=== PATIENT | female | born 1950 | race Caucasian/White ===

== ENCOUNTER → 2018-08-23 12:23 | Outpatient (CLI) | payer MEDICARE, OTHER, SELFPAY ==
--- NOTE | 2018-08-23 | DI.MRI.S_ITS ---
PROCEDURE: MR LUMBAR SPINE WO CON INDICATIONS: Radiculopathy, lumbar region TECHNIQUE: Noncontrast sagittal T1 spin echo and T2 fast echo, sagittal STIR, axial T1 and T2 fast spin echo through the lumbar spine. In cases with scoliosis, additional coronal T2 fast spin echo may be performed. COMPARISON: None. FINDINGS: Image quality: Diagnostic Alignment and Curvature: There is minimal retrolisthesis seen at L1-L2 and L2-L3. Minimal anterolisthesis is seen at L3-L4. Mild anterolisthesis is seen of L4-L5. There is minimal retrolisthesis at L5-S1. Moderate levoconvex scoliosis is seen. Bone Marrow: Marrow is of normal overall signal. Scattered foci are seen, which are hyperintense on T1-weighted and T2-weighted imaging, which are most consistent with benign vertebral body hemangiomas. No acute vertebral body compression fractures. Mild anterior wedge deformity is seen of L1, with 20% loss of height anteriorly. Spinal Cord: Conus medullaris terminates at the L1 level. Visualized cord demonstrates normal signal and size. Paraspinous Soft Tissues: No paravertebral masses. T12-L1: Mild loss of disc height is seen. Loss of disc signal is seen. Moderate disc bulge is seen, which is eccentric to the left. There is moderate left-sided and minimal right-sided neural foraminal narrowing seen. Mild central canal narrowing is seen. L1-L2: Moderate to severe loss of disc height and disc signal are seen. Reactive marrow endplate changes are seen, which demonstrate mixed T1 weighted and T2-weighted signal, and are attributed to a combination of edema and fatty metaplasia (Modic type I and Modic type II changes). Moderate to prominent disc bulge is seen, which is eccentric to the left. There is moderate to severe bilateral neural foraminal narrowing seen. There is a degree of compression seen upon the exiting nerve roots. Mild central canal narrowing is seen. L2-L3: Mild to moderate loss of disc height and disc signal can be seen. Moderate generalized disc bulge is seen. Moderate facet hypertrophy is seen, right worse than left. There is moderate left-sided and moderate to severe right-sided neural foraminal narrowing seen. There is a degree of compression seen upon the exiting right L2 nerve root. Moderate central canal narrowing is seen. L3-L4: The disc height is well-preserved. Loss of disc signal is seen at this level. Mild to moderate disc bulge is seen. Moderate to prominent facet hypertrophy is seen. Moderate bilateral neural foraminal narrowing is seen, right worse than left. Moderate central canal narrowing is seen. L4-L5: The disc height is well-preserved. Loss of disc signal is seen at this level. Mild to moderate disc bulge is seen. Moderate to prominent facet hypertrophy is seen. Moderate bilateral neural foraminal narrowing is seen, right worse than left. Mild central canal narrowing is seen. L5-S1: The disc height is well-preserved. Loss of disc signal is seen at this level. Moderate disc bulge is seen, which is eccentric to the left. Bridging anterior osteophytes are seen on the left. Mild to moderate facet hypertrophy is seen. There is moderate to severe bilateral neural foraminal narrowing seen, left worse than right. There is a degree of compression seen upon the exiting nerve roots. Minimal central canal narrowing is seen. IMPRESSION: Levoconvex scoliosis and multiple levels of degenerative change. The degenerative changes are overall most prominent at the L1-L2 level. Dictated by: Henrry Hameed M.D. on 08/23/2018 at 13:32 Approved by: Henrry Hameed M.D. on 08/23/2018 at 13:37
== END ==
PROVIDERS: PCP Family Medicine; Visit Provider Physical Medicine & Rehabilitation
DX: M47.26 Other spondylosis with radiculopathy, lumbar region (principal); M47.27 Other spondylosis with radiculopathy, lumbosacral region; M41.9 Scoliosis, unspecified
CPT/HCPCS: 72148

== ENCOUNTER → 2021-07-15 11:22 | Outpatient (CLI) | payer MEDICARE, OTHER, SELFPAY ==
--- NOTE | 2021-07-15 | DI.MRI.S_ITS ---
PROCEDURE: MR LUMBAR SPINE WO CON INDICATIONS: Spinal stenosis, lumbar region with neurogenic claudication TECHNIQUE: Noncontrast sagittal T1 spin echo and T2 fast echo, coronal T2, sagittal STIR, and T2 fast spin echo through the lumbar spine. COMPARISON: [facility], , MR LUMBAR SPINE WO CON, 08/23/2018, 12:37. [facility], CR, XR LUMBAR SPINE WITH OBLIQUES PLUS FLEXION EXTENSION, 06/28/2021, 15:52. FINDINGS: Image quality: Excellent. Alignment and Curvature: 5 lumbar type vertebral bodies are present by plain film. Moderate leftward curvature of the mid lumbar spine. Mild grade 1 retrolisthesis of L1 on L2 (measuring 6 mm), L2 on L3 (measuring 6 mm), and L5 on S1 (less than 5 mm). Mild, grade 1 anterolisthesis of L4 on L5 (measuring 7 mm), and L3 on L4 (4 mm). Bone Marrow: Marrow is of normal overall signal. No acute vertebral body compression fractures. Moderate reactive signal within the endplates adjacent to the L1-L2 intervertebral disc. Mild reactive signal within the remaining lumbar and lower thoracic intervertebral discs. Spinal Cord: Conus medullaris terminates at the upper L2 level. Visualized cord demonstrates normal signal and size. Paraspinous Soft Tissues: No paravertebral masses. T12-L1: Moderate disc height loss and desiccation. Mild diffuse disc bulge. Mild bilateral facet hypertrophy. Mild canal stenosis. Mild left greater than right foraminal stenosis. No significant change. L1-L2: Severe disc height loss and desiccation. Mild diffuse disc bulge. Mild facet and ligamentum flavum hypertrophy. Mild epidural lipomatosis. Mild canal stenosis. Moderate bilateral foraminal stenosis. No significant change. L2-L3: Mild disc height loss. Moderate disc desiccation. Mild diffuse disc bulge. Moderate facet and ligamentum flavum hypertrophy. There is increased, moderate canal stenosis. There is moderate to severe bilateral foraminal stenosis with mild L3 nerve root compression bilaterally. No significant change. L3-L4: Moderate disc desiccation. Mild disc height loss and diffuse disc bulge. Moderate bilateral facet hypertrophy. Mild canal stenosis. Moderate bilateral foraminal stenosis. No significant change. L4-L5: Moderate disc desiccation. Mild disc height loss. Mild diffuse disc bulge. Moderate bilateral facet hypertrophy. Mild canal stenosis. Moderate foraminal stenosis bilaterally. No significant change. L5-S1: Moderate disc height loss and desiccation. Mild diffuse disc bulge/osteophyte. Mild bilateral facet hypertrophy. Mild canal stenosis. Moderate to severe left and mild right foraminal stenosis. Mild left L5 nerve root compression. No significant change. IMPRESSION: 1. Multilevel degenerative disc and facet disease, as well as ligamentum flavum hypertrophy and epidural lipomatosis. 2. Multilevel canal stenoses, worst at L2-L3 where there is increased, moderate canal stenosis. 3. Multilevel foraminal stenoses, worst at L2-L3 and L5-S1, where there is associated intraforaminal nerve root compression. Recommend correlation with clinical symptoms to ascertain relevance of these findings. 4. Multilevel spondylolistheses. Dictated by: Katja Brasher M.D. on 07/19/2021 at 9:27 Approved by: Katja Brasher M.D. on 07/19/2021 at 9:34
== END ==
PROVIDERS: PCP Family Medicine; Referring Provider Physical Medicine & Rehabilitation; Visit Provider Physical Medicine & Rehabilitation
DX: M48.062 Spinal stenosis, lumbar region with neurogenic claudication (principal); M48.07 Spinal stenosis, lumbosacral region; M51.36 Other intervertebral disc degeneration, lumbar region; M51.37 Other intervertebral disc degeneration, lumbosacral region; M47.816 Spondylosis without myelopathy or radiculopathy, lumbar region; M47.817 Spondylosis without myelopathy or radiculopathy, lumbosacral region; M43.16 Spondylolisthesis, lumbar region
CPT/HCPCS: 72148

== ENCOUNTER → 2023-07-07 13:01 | Outpatient (CLI) | payer MEDICARE, OTHER, SELFPAY ==
--- NOTE | 2023-07-07 13:06 | DI.MRI.S_ITS ---
PROCEDURE: MR LUMBAR SPINE WO CON INDICATIONS: Spinal stenosis, lumbar region TECHNIQUE: Noncontrast sagittal T1 spin echo and T2 fast echo, sagittal STIR, and T2 fast spin echo through the lumbar spine. In cases with scoliosis, additional coronal T2 fast spin echo may be performed. COMPARISON: [facility], MR, MR LUMBAR SPINE WO CON, 07/15/2021, 11:39. [facility] [place], CR, XR LUMBAR SPINE WITH OBLIQUES PLUS FLEXION EXTENSION, 06/27/2023, 16:02. [facility], MR, MR LUMBAR SPINE WO CON, 08/23/2018, 12:37. FINDINGS: Image quality: This examination is limited by involuntary motion artifact. Alignment and Curvature: There is [id number] levoconvex lumbar scoliosis. Minimal retrolisthesis is seen at T12-L1. There is [id number] retrolisthesis seen at the L1-L2 level. There is mild retrolisthesis at L2-L3. Minimal anterolisthesis is seen at L3-L4. Grade 1 anterolisthesis is seen at L4-L5, yet without associated pars defects. Bone Marrow: Marrow is of normal overall signal. No acute vertebral body compression fractures. Spinal Cord: Conus medullaris terminates at the L1-L2 level. Visualized cord demonstrates normal signal and size. Paraspinous Soft Tissues: No paravertebral masses. T11-T12: Moderate loss of disc height is seen. Loss of disc signal is seen. Reactive marrow endplate changes are seen anteriorly, which are hyperintense on T1-weighted and T2-weighted imaging and most consistent with fatty metaplasia (Modic type II changes). No neural foraminal narrowing or central canal narrowing can be seen. T12-L1: Moderate loss of disc height is seen. Loss of disc signal is seen. Moderate disc bulge is seen, which is eccentric to the left. There is moderate left-sided and no right-sided neural foraminal narrowing. Mild to moderate central canal narrowing is seen. When comparison is made with the prior images, these findings are similar. L1-L2: Moderate loss of disc height and disc signal can be seen. Reactive marrow endplate changes are seen, which demonstrate mixed T1 weighted and T2-weighted signal, and are attributed to a combination of edema and fatty metaplasia (Modic type I and Modic type II changes). Moderate disc bulge is seen, which is eccentric to the left. Mild to moderate facet hypertrophy is seen. Associated hypertrophy of the ligamentum flavum can be seen. There is moderate to severe bilateral neural foraminal narrowing seen, with an associated a degree of compression seen upon the exiting nerve roots. Mild to moderate central canal narrowing is seen. When comparison is made with the prior images, these findings are similar. L2-L3: Mild loss of disc height is seen. Loss of disc signal is seen. Moderate disc bulge is seen, which is eccentric to the right. There is a superimposed central disc protrusion. There is moderate right-sided and [id number] left-sided facet hypertrophy seen. Associated hypertrophy of the ligamentum flavum can be seen. There is moderate to severe right-sided and at least moderate left-sided neural foraminal narrowing. There is a degree of compression seen upon the exiting nerve roots. Moderate central canal narrowing is seen. When comparison is made with the prior images, these findings are similar. L3-L4: The disc height is well-preserved. Loss of disc signal is seen at this level. Mild to moderate disc bulge is seen, which is eccentric to the right. There is a superimposed central disc protrusion. At least moderate facet hypertrophy can be seen. There is at least moderate bilateral neural foraminal narrowing seen. There is a degree of compression seen upon the exiting nerve roots. Moderate central canal narrowing is seen. When comparison is made with the prior images, these findings are similar. L4-L5: The disc height is well-preserved. Loss of disc signal is seen at this level. Moderate generalized disc bulge is seen. There is a superimposed central disc protrusion. Moderate to prominent facet hypertrophy can be seen. There is at least moderate right-sided neural foraminal narrowing, with a degree of compression upon the exiting right L4 nerve root. There is mild left-sided neural foraminal narrowing. Moderate central canal narrowing is seen. When comparison is made with the prior images, these findings are similar. L5-S1: The disc height is well-preserved. Loss of disc signal is seen at this level. Moderate disc bulge is seen, which is eccentric to the left. Mild facet joint hypertrophy is seen. There is moderate right-sided and moderate to severe left-sided neural foraminal narrowing. There is a degree of compression seen upon the exiting left L5 nerve root. No significant central canal narrowing is seen. No significant change from the prior. IMPRESSION: Multiple levels of significant lumbar spine degenerative change can be seen, which are similar to the 202 images. Dictated by: Henrry Hameed M.D. on 07/07/2023 at 13:08 Approved by: Henrry Hameed M.D. on 07/07/2023 at 13:15
== END ==
LOC: MRI 13:04
PROVIDERS: PCP Family Medicine; Referring Provider Orthopaedic Surgery Orthopaedic Surgery of the Spine; Visit Provider Physical Medicine & Rehabilitation
DX: M48.062 Spinal stenosis, lumbar region with neurogenic claudication (principal); M47.816 Spondylosis without myelopathy or radiculopathy, lumbar region; M47.817 Spondylosis without myelopathy or radiculopathy, lumbosacral region
CPT/HCPCS: 72148

== ENCOUNTER → 2023-07-26 13:07 | Outpatient (CLI) | payer MEDICARE, OTHER, SELFPAY ==
--- NOTE | 2023-07-26 13:09 | DI.CT.S_ITS ---
PROCEDURE: CT LUMBAR SPINE WO CON INDICATIONS: Spinal stenosis, lumbar region TECHNIQUE: Noncontrast 0.8 mm thick sections acquired from the T12 level to the sacrum. Sagittal and coronal reformats were constructed. For radiation dose reduction, the following was used: automated exposure control. COMPARISON: [facility] [place], CR, XR LUMBAR SPINE WITH OBLIQUES PLUS FLEXION EXTENSION, 06/27/2023, 16:02. [facility], MR, MR LUMBAR SPINE WO CON, 07/07/2023, 13:10. FINDINGS: Image quality: This study is limited by body habitus. Bones: There is [id number]-hg-[id number] levoconvex lumbar scoliosis. There is mild retrolisthesis at L1-L2, with minimal retrolisthesis at L2-L3. Minimal anterolisthesis is seen at L3-L4. Mild grade 1 anterolisthesis is seen at the L4-L5 level, without associated pars defects. There is a chronic appearing anterior wedge deformity at L1, with 20-30% loss of height anteriorly. No acute features are seen. No acute vertebral body compression fractures. No suspicious lytic or blastic bony lesions. T12-L1: Moderate loss of disc height is seen. Bridging endplate osteophytes can be seen on the left. Mild generalized disc bulge is seen. There is moderate left-sided and no right-sided neural foraminal narrowing. No central canal narrowing is seen. L1-L2: Severe loss of disc height is seen. Bridging endplate osteophytes are seen on the right and on the left. Endplate irregularity and sclerosis can be seen. Posteriorly projected endplate osteophytes are seen. Moderate facet joint hypertrophy is seen. There is moderate to severe left-sided and severe right-sided neural foraminal narrowing. Mild central canal narrowing is seen. L2-L3: At least moderate loss of disc height is seen on the right side. Bridging endplate osteophytes are seen on the right. Vacuum disc phenomenon is seen at this level. Moderate facet joint hypertrophy is seen. There is at least moderate left-sided and severe right-sided neural foraminal narrowing. Mild central canal narrowing is seen. L3-L4: The disc height is well preserved. Moderate disc bulge is seen, which is eccentric to the right. There is a superimposed central disc protrusion. Prominent facet hypertrophy can be seen, right worse than left. Moderate bilateral neural foraminal narrowing is seen. Moderate central canal narrowing is seen. L4-L5: Mild loss of disc height is seen. Moderate generalized disc bulge is seen. Prominent facet hypertrophy is seen. There is at least moderate left-sided and moderate right-sided neural foraminal narrowing. Moderate central canal narrowing is seen. L5-S1: Moderate to severe loss of disc height is seen on the left side. Bridging endplate osteophytes are seen on the left. Vacuum disc phenomenon is seen at this level. Moderate facet joint hypertrophy is seen. There is at least moderate right-sided and moderate to severe left-sided neural foraminal narrowing. Mild central canal narrowing is seen. Soft tissues: A lap band can be seen. No retroperitoneal masses or hematomas. Visualized aorta is normal in caliber. Calcified uterine fibroids can be seen. IMPRESSION: Levoconvex scoliosis and multiple levels of lumbar spine degenerative change can be seen. Additional findings: Lap band calcified uterine fibroids Dictated by: Henrry Hameed M.D. on 07/26/2023 at 19:24 Approved by: Henrry Hameed M.D. on 07/26/2023 at 19:29
== END ==
PROVIDERS: PCP Nurse Practitioner Family; Referring Provider Orthopaedic Surgery Orthopaedic Surgery of the Spine; Visit Provider Orthopaedic Surgery Orthopaedic Surgery of the Spine
DX: Z01.818 Encounter for other preprocedural examination (principal); M48.062 Spinal stenosis, lumbar region with neurogenic claudication; M47.816 Spondylosis without myelopathy or radiculopathy, lumbar region; M47.817 Spondylosis without myelopathy or radiculopathy, lumbosacral region; M41.9 Scoliosis, unspecified; Z98.84 Bariatric surgery status; D25.9 Leiomyoma of uterus, unspecified
CPT/HCPCS: 72131; 93005

== ENCOUNTER 2023-09-06 05:58 | Inpatient (IN) | payer MEDICARE, OTHER, SELFPAY ==
[2023-08-30 12:48] VITALS: BMI 37.8
[2023-09-06] VITALS (15 sets, daily range): BP systolic 91–130; BP diastolic 49–90; PULSE 63–81; RESP 13–18; TEMP 35.7–37; O2SAT 92–98; BMI 37.8
--- NOTE | 2023-09-06 | DI.RAD.S_ITS ---
PROCEDURE: XR LUMBAR SPINE 2-3V INDICATIONS: TLIF L3-4,L4-5 TECHNIQUE: 2 views of the lumbar spine were acquired. COMPARISON: [facility], CT, CT LUMBAR SPINE WO CON, 07/26/2023, 13:33. [facility], MR, MR LUMBAR SPINE WO CON, 07/07/2023, 13:10. FINDINGS: Intraoperative images demonstrating L3 through L5 fusion with intervertebral spacers. Hardware is intact with good anatomic alignment. IMPRESSION: Intervertebral fusion from L3 through L5. Dictated by: Giuliana Castillo M.D. on 09/06/2023 at 13:48 Approved by: Giuliana Castillo M.D. on 09/06/2023 at 13:50
--- NOTE | 2023-09-06 07:44 | PM.PREOP ---
Pre-operative Note Interval Note History & Physical reviewed/Exam performed by Physician: Yes Changes to H&P: No
--- NOTE | 2023-09-06 08:32 | SUR.OPER ---
Prone on spine table, head in foam head support, padded chest and pelvic supports, gel pad at knees, lower legs supported by pillows; nipples, genitalia and toes free of pressure, arms secured on foam padded arm boards at <90 degrees abduction. Tape over blanket at thigh secured to table.
--- NOTE | 2023-09-06 11:56 | PM.OP.1 ---
Operative Date/Time/Diagnoses Date of procedure: 09/06/23 Time of procedure: 07:40 Pre-op diagnosis: 1. L3-4, L4-5 spondylolisthesis 2. L3-4, L4-5 spinal stenosis with neurogenic claudication Post-op diagnosis: same Procedure & Clinicians Procedure: 1. L3-4, L4-5 Postero-lateral and posterior interbody fusion 2. L3-4, L4-5 interbody cage placement. 3. L3-4, L4-5 decompressive laminectomy with bilateral facetecomies 4. L3-4, L4-5 Posterior segmental instrumentation 5. [place] of bone marrow from iliac crest 6. Utilization of microsurgical technique and operating microscope 7 Utilization of robotic assisted navitation Same procedure as scheduled: Yes Indications: Patient has been having chronic back pain and worsening lumbar radiculopathy and symptoms of neurogenic claudication. Patient has MRI showing significant lumbar instability at L3-4 L4-5 with spinal stenosis correlating with symptoms of neurogenic claudication. Patient failed multiple conservative management with worsening pain weakness and numbness in her lower extremity. Patient has been having difficulty performing activity of daily living. After discussing risks benefits of treatment options, patient elected proceed with surgery. Surgeon: Dago Hill Glass Forming Crew Member: Nandini Briones Click Yes if Unassisted: No Anesthesia Type: General Operative Notes Closure Type: primary Specimen(s): none sent Prosthetic devices, grafts, tissues, transplants, or devices: Globus CREO MIS screws, Rise cages Applied: catheter Estimated Blood Loss (mL): 150 Blood products transfused: none Procedure in detail: Patient was seen in the preoperative area. Risks and benefits of the surgery was discussed with the patient. Informed consent was obtained from the patient and placed in the chart. Surgical site was marked. Patient was taken to the operative room. General anesthesia was administered. Prophylactic antibiotic was given to the patient less than 30 min before the incision was made. Patient was placed into a prone position on the Ryley table. Patient's back was then prepped and draped in the sterile fashion. Time-out was performed at this time. After patient was prepped and draped, patient's PSIS was palpated and marked bilaterally. Small 1 cm incision was made over the PSIS for placement of the reference probes. Two trocar was placed into the PSIS 1 on each side. The reference probe was attached to the trocar of the reference apparatus. At this time the C-arm imaging was used to confirm AP and lateral of L3, L4-L5 vertebrae and merged the C-arm imaging using the [employer] robotic navigation system with the CT of the lumbar spine. After successful merging was completed and confirmed, skin marker was used to jason out the skin incision using the [employer] robotic arm. Bilateral incision was made at this time. Pre templated trajectory was used and guided using the [employer] robotic navigation system for bilateral L3 L4, L5 pedicle screw placement. This was done by using the robotic arm to guide the high-speed bur to make a cortical entry point. Next a drill was placed also using the robotic arm and guided using the navigation system drilling partially through bilateral L3, L4, L5 pedicles. Next L3, L4, L5 pedicle screws it was pre templated and measured was placed onto the power light truck driver and inserted into the pedicles bilaterally. After all 6 screws were placed C-arm imaging was taken of both AP and lateral to confirm the placement. Excellent placement of the screws were confirmed and a matched precisely with the pre planned screw placement using the navigation system. MARs retractor was inserted using [employer] guidence. Globus MARS retractors was placed inside the incision and docked onto the L3, L4 lamina. Using microsurgical technique and operating microscope, a L3, L4 laminectomy and L3-4, L4-5 facetectomy was performed using a Kerrison rongeur. The laminectomy and facetectomy was performed in order to decompress patient's cauda equina as well as the nerve roots exiting at the L3-4, L4-5 level. Patient was found have severe lateral recess and neural foramen stenosis which was fully decompressed after the laminectomy facetectomy. More than 75% of the facets were removed during the process of decompression rendering L3-4, L4-5 level grossly unstable and required a fusion procedure at the same time. The disc space at L3-4, L4-5 was identified, and a total diskectomy was performed at L3-4, L4-5 level. The endplates were decorticated using a rasp and shaver. The total diskectomy and decortication was performed at L3-4, L4-5 level in order to to accomplish a L3-4, L4-5 fusion. The local bone from the laminectomy and facetectomy was saved for local bone grafting. After the total diskectomy and decortication was completed, Viacel bone graft material was combined with local bone that was harvested earlier. At this time, a separate skin is incision was made over the iliac crest. A Jamshidi needle was inserted into the iliac crest through a separate skin incision. 5 cc of bone marrow aspiration was obtained through the separate skin incision using a Jamshidi needle from the iliac crest. The bone marrow aspiration was combined with local bone and the Viacel bone grafting material. The bone grafting material was placed into the L3-4, L4-5 interbody space along with expandable cages. One cage each was inserted into the L3-4 L4-5 interbody space along with bone graft material. The cage was expanded to its maximum height using the torque limiting screwdriver. The disc preparation as well as the cage insertion were also performed under navigation guidance. After the cage was placed, AP and lateral C-arm imaging was taken to confirm placement of the cage and excellent position was confirmed. Globus MARS retractor was inserted and docked onto the L3-4, L4-5 posterolateral gutter on the right side. Using the power drill, posterior-lateral decortication was performed at L3-4, L4-5 level until bleeding cortical bone was identified. The remaining bone grafting material was placed into the L3-4, L4-5 posterior lateral gutter he order to accomplish posterolateral fusion at the L3-4, L4-5 level. At this time the tulips were attached to the L3, L4-L5 pedicle screw shanks. After measuring the length of the rods, they were inserted into the tulips of the pedicle screws and locked in place using locking caps and torque limiting screwdriver bilaterally. Total 6 caps and 2 titanium rods was used in order to complete the posterior instrumentation construct. After all the hardware was placed, and confirmed with AP and lateral C-arm imaging, the wound was then irrigated with sterile normal saline and packed with Ray-Stella gauze for 3 min to accomplish hemostasis. After the gauze was removed the deep fascia was closed with #1 Vicryl suture. The subcutaneous layer was closed with 2-0 Vicryl. The skin was closed with skin eve. Patient tolerated the procedure well. There were no complications. Neuro monitoring system was used to monitor patient's neurologic status throughout entire procedure. There was no disturbance of the neural monitoring signals throughout the case. The Operation could not have been safely performed without compromising the technical result or length of the procedure, without the assistance of a skilled assistant professor of spanish. The assistant professor of spanish was medically necessary for proper positioning, retraction and manipulation of instruments, proper exposure, surgical preparation, and manipulation of tissue. Complications: none Post-operative Condition: stable Disposition: PACU Plan for aftercare: Admit to inpatient hospital
[2023-09-06] MEDS: ACETAMINOPHEN IV 1,000 MG/100 ML VIAL 400 MG IV (12:13)
[2023-09-06] MEDS: hydrOXYzine 50 MG/ML INJ 25 MG IM (12:16)
[2023-09-06] MEDS: METOCLOPRAMIDE 10 MG/2 ML INJ IV (12:17)
[2023-09-06] MEDS: ONDANSETRON 4 MG/2 ML INJ IV (12:18)
[2023-09-06] MEDS: methocarbamoL 500 MG TABLET 750 MG PO (12:22)
[2023-09-06] MEDS: ACETAMINOPHEN 325 MG TABLET 650 MG PO (13:46)
[2023-09-06] MEDS: LACTATED RINGERS 1,000 ML 125 ML IV ×3 (13:47→22:30)
[2023-09-06] MEDS: OXYCODONE IR 5 MG TABLET PO ×3 (13:47→21:40)
--- NOTE | 2023-09-06 17:05 | PT-IP ANOTE ---
PT eval received. and EMR reviewed. checked on pt and pt is asleep. niece in room and informed about PT. niece does not want PT to wake pt up and agreed to just check on pt tomorrow.
[2023-09-06] MEDS: CEFAZOLIN 2 GM/100 ML PREMIX 100 ML IV (17:50)
[2023-09-06] MEDS: LACTATED RINGERS 500 ML 1000 ML IV (20:33)
[2023-09-06] MEDS: PREGABALIN 75 MG CAPSULE PO (21:18)
[2023-09-06] MEDS: SENNOSIDES 8.6 MG TABLET 17.2 MG PO (21:18)
[2023-09-06] MEDS: DOCUSATE 100 MG CAPSULE PO (21:18)
[2023-09-07] MEDS: CEFAZOLIN 2 GM/100 ML PREMIX 100 ML IV (00:25)
[2023-09-07 00:30] VITALS: BP 139/79; PULSE 72; RESP 17; TEMP 37; O2SAT 93
[2023-09-07] MEDS: ACETAMINOPHEN 325 MG TABLET 650 MG PO ×2 (01:02→09:51)
[2023-09-07] MEDS: OXYCODONE IR 5 MG TABLET PO ×3 (01:03→14:52)
--- NOTE | 2023-09-07 01:58 | PC.NURSE ---
Patient is alert and oriented. Breath sounds CTA but noted to intermittently desat to high 80's when on RA so is currently on oxygen at 1L/min with sat of 95%. HRR. Did have low BP at end of previous shift and was given a fluid bolus and last BP was now 139/79. Denied nausea. BT present and is now passing flatus. Indwelling catheter is patent and urine is clear, light beth. Is able to reposition herself in bed and log rolls appropriately. Was gotten up and was able to ambulate in the simon with walker and 1 assist; walked from room to 211 and back to room and then sat up in chair for and hour before getting back into bed. Dressing to back with shadow drainage noted on left side of dressing. Has chronic bilateral foot neuropathy and numbness in right leg; unchanged from pre-op. CMS is intact bilaterally. Is receiving oxycodone + tylenol for pain and well controlled; declines offer of ice pack. Is wearing bilateral calf SCD's. Fall risk score is moderate and bed alarm is activated.
[2023-09-07 06:09] LABS: Hematocrit 31.3 % (36-46)
[2023-09-07 06:37] VITALS: BP 132/74; PULSE 80; RESP 17; TEMP 37.1; O2SAT 95
[2023-09-07 08:00] VITALS: BP 114/68; PULSE 74; RESP 16; TEMP 36.8; O2SAT 98
[2023-09-07] MEDS: LACTATED RINGERS 1,000 ML 125 ML IV (08:17)
[2023-09-07] MEDS: DULOXETINE 30 MG CAPSULE 60 MG PO (09:51)
[2023-09-07] MEDS: DOCUSATE 100 MG CAPSULE PO (09:51)
--- NOTE | 2023-09-07 10:00 | OT.IP.EVAL ---
Current Diagnoses Spondylolisthesis, lumbar region (09/06/23) Spinal stenosis, lumbar region without neurogenic claudication (09/06/23) Surgery Performed Operation Date: 09/06/23 07:45 Actual Procedures p L3-4, L4-5 TLIF with posterior instrumentation - robot - Dago Hill MD Past Medical History (Last Updated 08/30/23 @ 13:26 by Lainey Tony, RN) High cholesterol History of COVID-19 (06/2022) Lumbar foraminal stenosis PHILIP (obstructive sleep apnea) Pre-diabetes Seasonal allergies Surgical History (Last Updated 08/30/23 @ 13:18 by Lainey Tony RN) Hx of abdominoplasty (2015) Hx of bilateral cataract extraction (2021) Hx of dilation and curettage () Hx of laparoscopic gastric banding (2012) Hx of LASIK (2001) S/P left unicompartmental knee replacement (2008) Occupational Therapy Inpatient Evaluation/Re-Eval M1 PT/OT-IP Prior Functional Status Start: 09/07/23 08:06 Freq: NEEDED Status: Active Protocol: Document 09/07/23 08:15 JG (Rec: 09/07/23 09:44 JG [id number]) Medical Review Social History Household Members friend(s),other Living Arrangements House Number of Floors (Floors) One Floor Number of Stairs To Enter/Railing? Pt has ramp to enter and exit home Home Environment High Toilet,Walk in Shower, Built-In Shower Seat Home Equipment Four Wheel Walker,Raised Toilet Seat Without Armrests, Hand Held Shower Employment Status Unknown M1 PT/OT-IP Prior Functional Status Start: 09/07/23 10:21 Freq: NEEDED Status: Active Protocol: Document 09/07/23 10:21 [facility] (Rec: 09/07/23 10:47 [facility] [id number]) Medical Review Prior Functional Status Communication Independent Mobility and Gait Did not use a device but her walking was limited in distance due to pain. Activities of Daily Living and IADL's Pt had pain during ADL and IADL needs. Social History Household Members family,other Living Arrangements House Number of Floors (Floors) One Floor Number of Stairs To Enter/Railing? Pt has ramp to enter and exit home Home Environment High Toilet,Walk in Shower Home Equipment Four Wheel Walker,Hand Held Shower,Shoulder Puncher,Grab Bars In Shower Employment Status Unknown Additional Social History Comment Pt has an adjustable bed. M2 OT-IP Current Condition Start: 09/07/23 10:21 Freq: Status: Active Protocol: Document 09/07/23 10:21 [facility] (Rec: 09/07/23 10:47 [facility] [id number]) Occupational Therapy Current Condition Current Condition Evaluation Date 09/07/23 Treatment Diagnosis S/P L 3-4, L4-5 TLIF Diagnosis Onset Date 09/06/23 Post Operative Precautions Lumbar Precautions Log Roll,No Twisting,Limit Bending,Lifting Restriction of 10 lbs,Gait Belt above Incisional Area M3 OT- IP Subjective and Pain Start: 09/07/23 10:21 Freq: Status: Active Protocol: Document 09/07/23 10:21 [facility] (Rec: 09/07/23 10:47 [facility] [id number]) OT- Subjective Occupational Therapy Visit Type Type Initial Evaluation Visit Start Time 09:12 Visit Stop Time 10:00 Occupational Therapy Visit Comments Patient Comments Pt agreed to get up to work with OT and pt's niece in the room for caregiver training. Patient/Caregiver Goals To go home. OT Pain Assessment Pain When Pain Assessed During Mobility Pain Present Pain Present Pain Reported M4 OT- IP ADL's Start: 09/07/23 10:21 Freq: Status: Active Protocol: Document 09/07/23 10:21 [facility] (Rec: 09/07/23 10:47 [facility] [id number]) OT [id number] Comments OT Self-Feeding Comments Not at mealtime, no concerns. OT ADL-Grooming General Evaluation Grooming Ability Standby Assistance Comments OT Grooming Comments set-up assist. OT ADL-Oral Care General Eval Oral Care Ability Standby Assistance Areas of Assistance Retrieving/Set-Up of Items Comments Oral Care Comments Set-up assist and vc to hinge at her hips or spit into a cup to best follow her back precautions. OT ADL-Dressing General Eval Lower Body Dressing Ability Minimal Assistance Areas Needing Assistance Socks Comments OT Dressing Comments Able to speak of sock aid for pt , but pt states is barefooted at home or just has slip in shoes to wear. OT ADL-Toileting Comments OT Toileting Comments Pt states to wears pull up or pads. Suggested pt get a BSC as has to walk to the bathroom several times at night. Able to try wiping and able to follow her back precautions better by standing. Suggested use of wet wipes as well and possibly getting a toilet paper aid to help with her independence. OT ADL-Bathing Comments OT Bathing Comments Pt states just thinking of sponging off at this time. Suggested to cover the dressing to prevent from getting wet when showering. M5 OT- IP IADL's Start: 09/07/23 10:21 Freq: Status: Active Protocol: Document 09/07/23 10:21 [facility] (Rec: 09/07/23 10:47 [facility] [id number]) OT-Instrumental Activities of Daily Living Deficits IADL Deficits Identified Deficits Home Safety Awareness Awareness of Need for Assistance at Home Good Awareness Ability to Problem Solve Emergency Able to Problem Solve Situations Home Safety Comments Pt's niece to be there to assist with her needs. Meal Preparation Meal Preparation Caregiver Provides Assist Electrical Prospector Electrical Prospector Caregiver Provides Assist Driving Driving Comments Pt is aware not to drive at this time. M6 OT- IP Functional Cognition Start: 09/07/23 10:21 Freq: Status: Active Protocol: Document 09/07/23 10:21 [facility] (Rec: 09/07/23 10:47 [facility] [id number]) Cognitive Factors Limiting Selfcare Function Cognitive Ability Level of Alertness Alert Patient Orientation Name,Age,Birthday,Month,Date, Year,Day of Week,Place, Situation Attention Span Ability Capable of Focused Attention, Capable of Sustained Attention Ability to Follow Commands Able to Follow One Step Commands Safety Awareness Decreased Ability to Apply Precautions Cognitive Comments Cognitive Assessment Comments Pt is a bit impulsive at times and needing reminders to incorporate her back precautions during ADL and mobility needs. OT- Vision and Hearing OT- Hearing Assessment OT- Hearing Assessment Hearing Impaired OT- Vision Assessment Visual Acuity Glasses For Reading Visual Attentiveness WFL Occular Pursuits WFL M7 OT- IP Mobility and Balance Start: 09/07/23 10:21 Freq: Status: Active Protocol: Document 09/07/23 10:21 [facility] (Rec: 09/07/23 10:47 [facility] [id number]) OT- Bed Mobility Assessment Rolling Type of Rolling Log Rolling Level of Assistance Standby Assistance Supine to Sit Supine to Sit Assist Standby Assistance,Contact Guard Assistance Sit to Supine Sit to Supine Assist Standby Assistance,Contact Guard Assistance OT-Transfer Assessment Sit to and From Stand Sit to and from Stand Standby Assistance Transfers Transfer Ability Standby Assistance Technique Transfer Destination Bed,Chair,Toilet Transfer Technique Stand Step Pivot Devices Transfer Assistive Devices Gait Belt,Front Wheeled Walker Comments Mobility Comments Having to go over log rolling with the pt to be sure not to reach back with her left arm when getting into or out of the bed. Pt's niece able to safely assist for for all mobility needs at this time. Pt states feel confident in using the 4ww and states to pickk up a fww if needed. Suggested pt ga a toilet safety frame/bsc / grab bare for the toilet. Pt states will be able to us the valenzuela by the toilet to get up. Able to practice , pt able to push on on her knees to stand and also by use of the wall on the right, and left hand on her knee. Educated if pushing on the fww to be sure that her niece assist to stabilize the fww as needed. OT- Balance Assessment Sitting Balance and Reactions Static Sitting Balance Ability Good Dynamic Sitting Balance Ability Good Standing Balance and Reactions Static Standing Balance Ability Good Dynamic Standing Balance Ability Fair Comments Other Balance Tests/Deviations/Treatment Pt's states prior her feet : turning lathe tender while walking. Cued pt to be sure to have her feet in the fww and be careful not to bump into her feet. M8 OT- IP Objective Assessments Start: 09/07/23 10:21 Freq: Status: Active Protocol: Document 09/07/23 10:21 [facility] (Rec: 09/07/23 10:47 [facility] [id number]) OT Gross Range of Motion Upper Extremity Range of Motion Assessment Within Functional Limits OT Strength Upper Extremity Strength Assessment Within Functional Limits M9 OT- IP Assessment and Plan Start: 09/07/23 10:21 Freq: Status: Active Protocol: Document 09/07/23 10:21 [facility] (Rec: 09/07/23 10:47 [facility] [id number]) OT Summary Assessment and Plan Potential Rehabilitation Potential Good Analytic Complexity at Evaluation Low Summary OT Impairments Pain,Balance,Functional Mobility,Dressing,Toileting, Bathing,Toilet Transfers, Shower Transfers Progress Towards Goals Progressing Toward Goals Assessment Summary Pt low complexity and main barriers are pain and a little impulsive at times. Pt has a supportive niece who demonstrates good understanding and safety to be able to assist the pt. Pt to go home with assist when medically stable. Goals Self-Feeding Goal Independent Grooming Goal Independent Dressing Goal Independent Toileting Goal Independent Bathing Goal Standby Assistance Toilet Transfer Goal Independent Shower Transfer Goal Independent Days to Meet Goals 10 Frequency of Treatment Frequency Of Treatment Once a Day Treatment Plan OT Treatment Plan ADL Training,Functional Mobility,Patient/Family Education,Discharge Planning Discharge Recommendations OT Discharge Recommendations Home with Assistance Transportation Needs at Discharge Private Vehicle
--- NOTE | 2023-09-07 10:56 | PT.IIE ---
Addendum entered and electronically signed by Karolyn Kramer PT 09/07/23 10:59: PT provides direct supervision during SPT assessment Original Note: Current Diagnoses Spondylolisthesis, lumbar region (09/06/23) Spinal stenosis, lumbar region without neurogenic claudication (09/06/23) Surgery Performed Operation Date: 09/06/23 07:45 Actual Procedures p L3-4, L4-5 TLIF with posterior instrumentation - robot - Dago Hill MD Surgical History (Last Updated 08/30/23 @ 13:18 by Lainey Tony RN) Hx of abdominoplasty (2015) Hx of bilateral cataract extraction (2021) Hx of dilation and curettage (~2005) Hx of laparoscopic gastric banding (2012) Hx of LASIK (2001) S/P left unicompartmental knee replacement (2008) Medical History (Last Updated 08/30/23 @ 13:26 by Lainey Tony RN) High cholesterol History of COVID-19 (06/2022) Lumbar foraminal stenosis PHILIP (obstructive sleep apnea) Pre-diabetes Seasonal allergies Physical Therapy Inpatient Evaluation/Re-Eval M1 PT/OT-IP Prior Functional Status Start: 09/07/23 08:06 Freq: NEEDED Status: Active Protocol: Document 09/07/23 08:15 JG (Rec: 09/07/23 09:44 JG [id number]) Medical Review Social History Household Members friend(s),other Living Arrangements House Number of Floors (Floors) One Floor Number of Stairs To Enter/Railing? Pt has ramp to enter and exit home Home Environment High Toilet,Walk in Shower, Built-In Shower Seat Home Equipment Four Wheel Walker,Raised Toilet Seat Without Armrests, Hand Held Shower Employment Status Unknown M1 PT/OT-IP Prior Functional Status Start: 09/07/23 10:21 Freq: NEEDED Status: Active Protocol: Document 09/07/23 10:21 CCC (Rec: 09/07/23 10:47 [facility] [id number]) Medical Review Prior Functional Status Communication Independent Mobility and Gait Did not use a device but her walking was limited in distance due to pain. Activities of Daily Living and IADL's Pt had pain durign ADL and IADL needs. Social History Household Members family,other Living Arrangements House Number of Floors (Floors) One Floor Number of Stairs To Enter/Railing? Pt has ramp to enter and exit home Home Environment High Toilet,Walk in Shower Home Equipment Four Wheel Walker,Hand Held Shower,Clutch Assembler,Grab Bars In Shower Employment Status Unknown Additional Social History Comment Pt has an adjustable bed. M2 PT-IP Current Condition Start: 09/07/23 08:06 Freq: NEEDED Status: Active Protocol: Document 09/07/23 08:15 JG (Rec: 09/07/23 09:44 Neil [id number]) Physical Therapy Current Condition Current Condition Evaluation Date 09/07/23 Treatment Diagnosis Lumbar TLIF Onset Date 09/06/23 M3 PT-IP Subjective Start: 09/07/23 08:06 Freq: NEEDED Status: Active Protocol: Document 09/07/23 08:15 BRANDI (Rec: 09/07/23 09:44 Neil [id number]) Subjective Physical Therapy Visit Type Type Initial Evaluation Visit Start Time 08:15 Visit Stop Time 08:50 Number of FINANCIAL AID OFFICER Visits 0 Physical Therapy Visit Comments Patient Comments Pt's reported pain decreased from a 6/10 to a 3/10 after mobility with PT Patient Goals Pt performed water aerobics 5 times a week prior to surgery and is anxiously awaiting return and will follow proper protocol for recovery Therapy Pain Assessment Pain When Pain Assessed At Rest Pain Present Pain Present Pain Reported Location back Intensity 6 Scale Used Numeric (0 - 10) Description Aching,Throbbing Pain Behaviors Facial Grimacing,Wincing Pain Management Techniques Re-positioning M4 PT-IP Mobility and Gait Start: 09/07/23 08:06 Freq: NEEDED Status: Active Protocol: Document 09/07/23 08:15 JG (Rec: 09/07/23 09:44 J [id number]) PT-Bed Mobility Assessment Rolling Type of Rolling Log Rolling,Bilateral Level of Assist Standby Assistance Supine to Sit Supine to Sit Standby Assistance Sit to Supine Sit to Supine Standby Assistance Scooting Scooting to Edge of Bed Standby Assistance Scooting Up and Down in Bed Standby Assistance PT-Transfer Assessment Sit to and From Stand Sit to and from Stand Independent,Standby Assistance Equipment Transfer Assistive Device Gait Belt,Front Wheeled Walker ,4 Wheeled Walker Orthotic/Prosthetic Devices or Brace: No Transfers Transfer Destination Bed Transfer Technique Ambulation Transfer Ability Level of Assist Independent,Standby Assistance Comments Mobility Comments Pt needed minimal cueing to direct hands to proper placement on bed when performing STS with FWW. Pt began using hand rail during log roll but was cued not to in order to mimic home set-up. After training, feel pt is fine to do bed mobility at home Gait Assessment Gait Gait Assistance Required: Independent,Standby Assistance Distance (Feet) 80 Able to Maintain Weight Bearing Status Yes During Gait Assistive Devices Assistive Device Gait Belt,Front Wheeled Walker ,4 Wheeled Walker Orthotic/Prosthetic Devices or Brace: No Gait Deviations General Gait Pattern Decreased Stride Length, Decreased Feet Clearance, Flexed Trunk,Lateral Trunk Lean Factors Limiting Gait Function Factors Limiting Gait Function Decreased Strength,Limited Range of Motion,Pain,Poor Balance Comments Gait Comments Pt was observed during gait training with R trandelenburg sign, excessive pronation of feet B, B increased ER of feet R>L, R elevated hip. Pt was able to safely initate movement and stop on command during gait training. 80' with RW and then 100' with rollator as this as what pt has at home and she does well with this after some training, thus I to SBA given for gait PT-Balance Assessment Sitting Balance and Reactions Static Sitting Balance Ability Normal Dynamic Sitting Balance Ability Normal Standing Balance and Reactions Static Standing Balance Ability Good Dynamic Standing Balance Ability Good Device Used FWW/4WW M5 PT-IP Objective Assessments Start: 09/07/23 08:06 Freq: NEEDED Status: Active Protocol: Document 09/07/23 08:15 JG (Rec: 09/07/23 09:44 J [id number]) Orientation Orientation/Cognition Level of Alertness Alert Orientation Name,Date,Year,Day of Week, Place Language Function Ability No Deficits Noted Safety Awareness Understands Safety Issues Memory Description No Deficits Noted Gross Range of Motion Upper Extremity ROM Impairments Defer to OT Lower Extremity ROM Assessment Within Functional Limits Strength Lower Extremity Strength Assessment Within Functional Limits Knee 5/5 Ankle 5/5 Sensation Assessment Comments Sensation Comments 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 Pt reported no pain or tingling in the area and had appropriate sensation when tested. Mild edema B LEs, worse on the right M6 PT-IP Treatment Start: 09/07/23 08:06 Freq: NEEDED Status: Active Protocol: Document 09/07/23 08:15 JG (Rec: 09/07/23 09:44 [id number]) Physical Therapy Treatment Education Education Provided Precautions,Post-Op Packet, Safety Other Treatments Other Treatment Performed Log rolling and no BLT reviewed M7 PT-IP Assessment and Plan Start: 09/07/23 08:06 Freq: NEEDED Status: Active Protocol: Document 09/07/23 08:15 BRANDI (Rec: 09/07/23 09:44 Neil [id number]) PT Summary Assessment and Plan Potential Rehabilitation Potential Excellent Status of Condition at Evaluation Stable Summary Impairments Pain,Balance,Gait,Activity Tolerance Progress Towards Goals Safe For Discharge Assessment Summary Pt is a 73 year old female that presents s/p lumbar TLIF. Pt is I to SBA with all transfers and gait training. PT noted that pt had hypotension post-op and so anticipated checking orthostatics but pt reports increased discomfort if BP taken in proximally arms. Since orthostatic assessment would not be as accurate with distal BP in forearm, deferred and monitored symptoms with mobility. Pt dizziness with all mobility. Pt presents with coolness to touch and discoloration B LEs. Edema is greater on RLE. Good participation and performance of back precautions with mobility. She plans to d/c home with niece assistance. Frequency of Treatment Frequency Of Treatment Discharge Precautions Lumbar Precautions Log Roll,No Twisting,Limit Bending,Lifting Restriction of 10 lbs,Gait Belt above Incisional Area Weight Bearing Status Weight Bearing Status Weight Bear as Tolerated Recommendations To Nursing Amount of Assist Needed 1 Person Assist Discharge Recommendations PT Discharge Recommendations Home with 17/10 Assist Available Other Discharge Recommendations Pt will have home assistance from niece upon discharge and will be driving pt home Transportation Needs at Discharge Private Vehicle
[2023-09-07 12:00] VITALS: BP 118/50; PULSE 94; RESP 16; TEMP 36.7; O2SAT 98
--- NOTE | 2023-09-07 12:41 | PM.DS.1 ---
History of Present Illness History of Present Illness Chief complaint: Lumbar TLIF Narrative: The pleasant 73-year-old female who is postop day #1 s/p L3-4, L4-5 Postero-lateral and posterior interbody fusion with cage placement by Dr. Hill. Overall reports she is doing well and is ready to be discharged to home with her niece. Reports pain is 4/5 in her low back, no radiating symptoms, no shooting pain down either leg. She reports the sensation in her feet have improved status post surgery and she is happy with the surgical outcome so far. Her Gonsalves catheter was removed this morning but she has not urinated yet. She worked with PT today and did well, she reports she feels better when she is up and moving rather than lying down. Denies fever, chills, chest pain, SOB, nausea, vomiting. Operative Date/Time/Diagnoses Date of procedure: 09/06/23 Time of procedure: 07:40 Pre-op diagnosis: 1. L3-4, L4-5 spondylolisthesis 2. L3-4, L4-5 spinal stenosis with neurogenic claudication Post-op diagnosis: same Procedure & Clinicians Procedure: 1. L3-4, L4-5 Postero-lateral and posterior interbody fusion 2. L3-4, L4-5 interbody cage placement. 3. L3-4, L4-5 decompressive laminectomy with bilateral facetecomies 4. L3-4, L4-5 Posterior segmental instrumentation 5. Brule of bone marrow from iliac crest 6. Utilization of microsurgical technique and operating microscope 7 Utilization of robotic assisted navitation Same procedure as scheduled: Yes Indications: Patient has been having chronic back pain and worsening lumbar radiculopathy and symptoms of neurogenic claudication. Patient has MRI showing significant lumbar instability at L3-4 L4-5 with spinal stenosis correlating with symptoms of neurogenic claudication. Patient failed multiple conservative management with worsening pain weakness and numbness in her lower extremity. Patient has been having difficulty performing activity of daily living. After discussing risks benefits of treatment options, patient elected proceed with surgery. Surgeon: Dago Hill Act English Tutor: Nandini Briones Click Yes if Unassisted: No Anesthesia Type: General Discharge Providers Provider Date of admission: 09/06/23 05:58 Discharge Date: 09/07/23 Primary care physician: ADRIA Platt Consults: 06/12/24 13:08 Consult to Occupational Therapy Evaluate & Treat Comment: Physician Instructions: Evaluate and treat Consult to Physical Therapy Evaluate & Treat Comment: Physician Instructions: Evaluate and Treat Discharge provider: Jeanine Castillo PA-C Summary Hospital Course Discharge Diagnosis: stable s/p L3-4, L4-5 TLIF Hospital Course: Uncomplicated hospital course Exam Vital Signs (past 8 hours): - 09/07/23 06:37 09/07/23 08:00 09/07/23 12:00 Temperature 98.8 F 98.2 F 98.1 F Pulse Rate 80 74 94 H Respiratory Rate 17 16 16 Blood Pressure 132/74 114/68 118/50 L Pulse Oximetry 95 98 98 Oxygen Flow Rate 1 1 0 Oxygen Delivery Method Nasal Cannula Oxygen Flow Rate 0 Narrative Exam Narrative: Lying on her side comfortably in bed upon presenting to the room today. No acute distress. SCDs on and functioning. Niece at bedside. Resp Effort & Inspection: normal respiratory effort and able to speak in complete sentences Cardio Rate: regular rate Other: Brisk capillary refill. Skin Other: Postsurgical dressings clean, dry, intact, no drainage. Neuro General: patient oriented x3 Other: Slightly lethargic. Extrem Other: 5/5 strength with df, PF, EHL, knee extension and hip flexion. Calf soft and nontender bilaterally. Gross sensation intact to light touch throughout bilateral lower extremities. Objective Labs 09/07/23 06:00 Labs: Laboratory Results - last 24 hr 09/07/23 06:00 Hgb 11.0 L Hct 31.3 L PFSH Medical History (Updated 08/30/23 @ 13:26 by Lainey Tony RN) History of COVID-19 (06/2022) Lumbar foraminal stenosis Pre-diabetes High cholesterol PHILIP (obstructive sleep apnea) Seasonal allergies Surgical History (Updated 08/30/23 @ 13:18 by Lainey Tony RN) S/P left unicompartmental knee replacement (2008) Hx of dilation and curettage (~2005) Hx of abdominoplasty (2015) Hx of laparoscopic gastric banding (2012) Hx of LASIK (2001) Hx of bilateral cataract extraction (2021) Social History household members: family and other Smoking Status: Former smoker alcohol intake: current Discharge Assessment & Plan Assessment and Plan Assessment: stable s/p L3-4, L4-5 TLIF Plan of Treatment: 1) Plan to discharge to home today with niece pending voiding trial. Niece plans to stay with the patient for least 1 week postoperatively. 2) Continue multimodal pain management, postop pain medication sent to patient is retired pharmacy today. 3) mechanical DVT prophylaxis. 4) maintain BLT restrictions for 6 weeks 5) Keep dressing intact, clean, dry until 2 week postop appointment. No soaking the incision site in pools or tubs. No topical ointments or creams to the incision site. 6) Follow up at [facility] orthopedics in 2 weeks for a postop appointment and wound check. All patient's questions were answered, they demonstrates understanding and are in agreement with the plan. Call our office if any questions or concerns arise. Discharge Plan Discharge Plan Patient Disposition: Home Discharge orders & Medications Prescriptions: New oxycodone 5 mg Tablet 5 mg PO Q4-6H PRN (Reason: Pain, Moderate (4-6)) Qty: 30 0RF docusate sodium 100 mg Capsule 100 mg PO BID Qty: 60 0RF acetaminophen 325 mg Tablet 650 mg PO Q6H PRN (Reason: Fever/Mild Pain (1-3)) Qty: 90 1RF Continued cetirizine 10 mg Tablet 10 mg PO DAILY PRN (Reason: seasonal allergies) hydrochlorothiazide 25 mg Tablet 25 mg PO QPM ondansetron 4 mg Tablet,Disintegrating 4 mg PO Q6H PRN (Reason: Nausea) duloxetine 60 mg Capsule,Delayed Release(Dr/Ec) 60 mg PO DAILY pregabalin 75 mg Capsule 75 mg PO BEDTIME tirzepatide (weight loss) 2.5 mg/0.5 mL Pen Injector 2.5 mg SUBCUT QWEEK Patient Comments: Takes on Monday Discontinued Advil 200 mg Tablet 200 - 600 mg PO DAILY PRN (Reason: Pain) Follow up/Referrals: Dago Hill MD [Physician] - 09/18/23 2:00 pm (Follow up w/ Jeanine Castillo PA-C, at [facility] office in [place].) Salome Trujillo ARNP [Primary Care Provider] - Diet/Activity/Treatments Diet: Diet as Tolerated Activity: No deep bending or twisting at the waist. No lifting more than 10 pounds. Skin/Wound/Dressing Care Report to your healthcare provider any signs of infection, such as:: chills, fever, night sweats, unusual drainage and unusual redness Dressing: May shower. Keep dressings as dry as possible. If dressing becomes wet or dirty, may remove and replace with clean, dry gauze. No bathing or otherwise soaking incisions. Do not apply any creams, lotions, or ointments to incisions. Visit Report/Discharge Packet Instructions: DI for Constipation, How to Prevent Falls, DI for Prescription Opioid Use, DI for Transforaminal Lumbar Interbody Fusion Stand Alone Forms: Patient Portal/API, Stroke Signs & Symptoms Discharge Data Primary Care Provider: Salome Trujillo
--- NOTE | 2023-09-07 14:50 | CM.DANOTE ---
Initial DCP Assessment Visit Note Reviewed EMR and team rounds for status updates. Met with pt and her niece at bedside to introduce self and role, pt was found to be alert/oriented/sitting on the edge of the bed. Pt lives independently in her own home in [place]. Her niece is here and will plan to stay with pt for a week following d/c home. Her niece will also plan to drive her home once she's medically cleared for home d/c, likely on Monday. Payor: Medicare Attending: Dr. Hill Pt is a 73 year-old F post-op day 1 following her planned TLIF surgery. She has a hx of worsening lumbar pain that has not responded to conservative efforts of pain management, does not use AD for mobility at baseline, however she did purchase a walker for postoperative use. She has been working with therapies today, and will likely d/c home tomorrow following working with PT. DCP will continue to follow and assist for any evolving needs at d/c, however at this time none are anticipated. She does have her OP Ortho visit scheduled in 2-weeks for wound check. Discharge Planning/Care Management CM Discharge Assessment Start: 09/07/23 14:45 Freq: Status: Active Protocol: Document 09/07/23 14:45 DPL (Rec: 09/07/23 14:49 DPL [id number]) Discharge Planning Assessment Assigned Mixer Machine Feeder AAMIR Shell Advance Directives? No History Provided By Patient,Family Member,Medical Record Has Patient been admitted in last 30 No days? Prior Living Arrangements House Household Members family,other Type of transporation used prior to Drives own vehicle admit Independent with ADL's Yes Is patient alert and oriented? Yes Caregiver for Another No DME Already Rented / Owned FWW / Walker,Cane Patient/Family Preference OP PT Therapy Barriers to Discharge No Referrals Initiated None needed Whiteboard Updated in Patient Room with Yes name and ext. # of Mixer Machine Feeder Review Status In Process Please Provide Date Initial DC 09/07/23 Assessment Was Performed Pre-Anesthesia Assessment Start: 08/30/23 12:48 Freq: Status: Complete Protocol: Document 08/30/23 12:48 CAB (Rec: 08/30/23 13:32 CAB [id number]) Pre-Anesthesia Assessment Patient Information Reviewed Via Phone Assessment Assessment Completed With Patient Diagnostic Results BMP/CMP,CBC,EKG Comment Outside labs scanned, EKG IH , no change from 2013 per reading Primary Care Provider Salome Trujillo Comment visit 07/19/23, clearance scanned and in surgery folder Seen Specialist in Last 12 Months Yes Specialist Seen Orthopedist Primary Language Uzbek Flat Hammerer Required No Height 167.64 cm Weight 106.141 kg Body Mass Index (BMI) 37.8 Hearing Ability Normal Visual Assist Magnifying Glass Dentition Type Teeth, Natural Present Barriers to Learning None Hx Anesthesia Reactions Yes: I came out slugging s/p abdominoplasty surgery Hx Family Anesthesia Reaction No Hx Malignant Hyperthermia No Hx Blood Transfusions No Anesthesia Review Requested No Screener And Blender Operator No alcohol intake current alcohol intake frequency a few times a month Smoking Status Former smoker how long ago did patient quit smoking Quit age 50 Substance Use Type marijuana Comment Not in last year Pain Present Pain Reported Musculoskeletal Symptoms Back Pain,Difficulty Walking, Joint Pain,Muscle Weakness History of Falling (Recent or History of No ) Patient is completely paralyzed or No completely immobile Mental Status Oriented to own ability Is patient on oxygen? No Does patient have CARLSON/SOB No Hx Sleep Apnea Yes CPAP/BIPAP use prescribed not used Currently Taking a Beta Billy No Can You Climb a Flight of Stairs Without Yes SOB Hx Chest Pain No Hx SOB No Hx Syncope or Dizziness Yes: Rare dizziness w/ hypotension Anti-Coagulant Therapy No Has a Project Scientist No Cardiac Testing No Hx Pacemaker/ICD No Pacemaker Rep Required? No Cardiac Clearance Received No Comment Pool exercises/running in pool 5x week Diet Type At Home Regular,Low Carb Dysphagia No Gastrointestinal Symptoms Constipation Urinary Catheter Present No Hx Urinary Self Catheterization No Diabetes No: Pre-diabetes Patient No Lactating No Presence of External or Internal Medical Yes: Gastric lap band, víctor eye Devices IOLs, left partial knee Received a COVID vaccine? Yes Received all doses? Yes Marital Status Single Lives With none Current Living Arrangements House Number of Floors (Floors) One Floor Support System Family Does the Patient Have Assistance After Yes: Niece will stay s/pt to Surgery assist w/care at [place] Patient Discharge Plan Description Return Home Comment Pt advised 1-3 day length of stay per surgeon Feels Safe in Current Environment Yes Been Physically Hurt or Threatened By a No Person in Current Environment Do you have thoughts of harming yourself None or others? Are you currently considering suicide? No Do you have a plan to hurt yourself or No Plan others? Do You Have Any Spiritual Beliefs That No May Affect Your HC Choices? Do You Have Any Cultural Practices That No May Affect Your HC Choices? Comment Atheist Who Can We Speak to About Patient's Care Family, friends Identifying Code for Release of Patient Declines to issue Information Health Care Proxy/Next of Kin Beatriz (niece) Health Care Proxy Emergency Contact Name Kayla Bustamante (sister) Emergency Contact Advance Directives? No Power of Armhole Baster Hand No PAC Instructions Durable medical equipment, Medications to take/avoid, Nasal antibiotic,No ETOH/ petroleum product on skin DOS, NPO,Pre-surgical wash,Sensory aids,Sturdy shoes/comfortable clothes,Do not bring valuables and remove jewelry
--- NOTE | 2023-09-07 15:09 | PC.NURSE ---
Dayshift: Gonsalves d/c'ed at 0930, pt able to void without issue at 1430. Provided discharge education to pt and niece. All questions answered. PIV d/c'ed. All belongings with patient. Pt escorted to exit via wheelchair by CHAD [place].
== END 2023-09-07 15:10 | disposition home or self-care (01) | DRG 455 ==
PROVIDERS: Admitting Provider Orthopaedic Surgery Orthopaedic Surgery of the Spine; PCP Nurse Practitioner Family; Referring Provider Family Medicine; Visit Provider Orthopaedic Surgery Orthopaedic Surgery of the Spine
PROC: 01NB0ZZ Release Lumbar Nerve, Open Approach (ICD-10-PCS; principal; 2023-09-06 07:45)
DX: M48.062 Spinal stenosis, lumbar region with neurogenic claudication (principal); M43.16 Spondylolisthesis, lumbar region; M41.26 Other idiopathic scoliosis, lumbar region
CPT/HCPCS: 72100; 76000; 85014; 85018; 97116; 97161; 97165; 97530; 97535; C1713; C1831; J0136; J0330; J0690; J1100; J2405; J2704; J2765; J3010; J3410

== ENCOUNTER → 2024-05-21 13:02 | Outpatient (CLI) | payer MEDICARE, OTHER, SELFPAY ==
[2023-09-06 06:38] VITALS: BMI 37.8
--- NOTE | 2024-05-21 13:04 | DI.CT.S_ITS ---
PROCEDURE: CT SINUS SCREEN WO CON INDICATIONS: chronic pansinusitis TECHNIQUE: Noncontrast 3.0 mm axial images acquired from the frontal sinuses to the mid-sella, with coronal and sagittal reformats. For radiation dose reduction, the following was used: automated exposure control, adjustment of mA and/or kV according to patient size. COMPARISON: None. FINDINGS: Image quality: Excellent. Sinuses: Minimal mucosal thickening is present in the left maxillary sinus. Remaining sinuses are clear. No fluid levels. Ostiomeatal Complexes: Ostiomeatal complexes are patent. No Michael cells. Miscellaneous: Visualized intra-orbital contents are normal. Right middle case bullosa. No paradoxical turbinate curvature. Leftward nasal septal deviation. IMPRESSION: Mild left maxillary sinus mucosal thickening. Dictated by: Giuliana Castillo M.D. on 05/21/2024 at 16:41 Approved by: Giuliana Castillo M.D. on 05/21/2024 at 16:42
== END ==
PROVIDERS: PCP Nurse Practitioner Family; Referring Provider Otolaryngology; Visit Provider Otolaryngology
DX: G44.89 Other headache syndrome (principal); J32.4 Chronic pansinusitis
CPT/HCPCS: 70486

== ENCOUNTER → 2025-01-10 12:04 | Outpatient (CLI) | payer MEDICARE, OTHER, SELFPAY ==
[2023-09-06 06:38] VITALS: BMI 37.8
--- NOTE | 2025-01-10 12:06 | DI.MRI.S_ITS ---
PROCEDURE: MR LUMBAR SPINE WO CON INDICATIONS: low back pain TECHNIQUE: Noncontrast sagittal T1 spin echo and T2 fast echo, sagittal STIR, and T2 fast spin echo through the lumbar spine. In cases with scoliosis, additional coronal T2 fast spin echo may be performed. COMPARISON: [facility] [place], CR, XR LUMBAR SPINE 2 OR 3 VIEWS, 03/12/2024, 13:42. [facility], CT, CT LUMBAR SPINE WO CON, 07/26/2023, 13:33. [facility], MR, MR LUMBAR SPINE WO CON, 07/07/2023, 13:10. FINDINGS: Image quality: This examination is limited by involuntary motion artifact. Alignment and Curvature: [id number] levoconvex lumbar scoliosis is seen. There is mild retrolisthesis at L1-L2 and L2-L3. Minimal anterolisthesis is seen at L4- L5. Bone Marrow: Marrow is of normal overall signal. No acute vertebral body compression fractures. Spinal Cord: Conus medullaris terminates at the L1 level. Visualized cord demonstrates normal signal and size. Paraspinous Soft Tissues: No paravertebral masses. Postoperative changes are seen, with bilateral pedicle screws from L3 through L5. Vertical fixation rods are seen. Disc spacers are seen at L3-L4 and L4-L5. There has been removal of portions of the posterior elements. T12-L1: Hhjx-fu-rngykkht loss of disc height and disc signal can be seen. Mild to moderate disc bulge is seen, which is eccentric to the left. Mild facet joint hypertrophy is seen. There is moderate left-sided and no right-sided neural foraminal narrowing. Minimal central canal narrowing is seen. When comparison is made with the prior images, these findings are similar. L1-L2: At least moderate loss of disc height and disc signal can be seen. Reactive marrow endplate changes are seen, which are hyperintense on T1-weighted and T2- weighted imaging and most consistent with fatty metaplasia (Modic type II changes). At least moderate disc bulge is seen. There is a superimposed central disc osteophyte protrusion. Moderate facet joint hypertrophy is seen. There is moderate to severe bilateral neural foraminal narrowing, right worse than left. There is a degree of compression seen upon the exiting nerve roots. Moderate central canal narrowing is seen. When comparison is made with the prior images, these findings are similar. L2-L3: Mild loss of disc height is seen. Loss of disc signal is seen. Moderate disc bulge is seen, which is eccentric to the right. Moderate facet joint hypertrophy is seen. There is at least moderate left-sided and moderate to severe right-sided neural foraminal narrowing. There is a degree of compression seen upon the exiting nerve roots. At least moderate central canal narrowing is seen, as on series 6, image 13. No significant change from the prior. L3-L4: Postoperative changes are seen at this level. Mild to moderate disc bulge is seen. Mild to moderate facet hypertrophy is seen. There is mild right-sided and [id number]-[id number] left-sided neural narrowing. No significant central canal narrowing is seen. This level is improved compared to the preoperative MRI. L4-L5: There are postoperative changes seen at this level. Mild to moderate disc bulge is seen. Moderate facet joint hypertrophy is seen. The there is [id number] right-sided and mild left-sided neural foraminal narrowing. Mild central canal narrowing is seen. This level is improved compared to the preoperative MRI. L5-S1: Moderate loss of disc height is seen. Loss of disc signal is seen. Moderate disc bulge is seen, which is eccentric to the left. Mild facet joint hypertrophy is seen. There is moderate right-sided and moderate to severe left-sided neural foraminal narrowing. There is a degree of compression seen upon the exiting left L5 nerve root. The central canal is widely patent. When comparison is made with the prior images, these findings are similar. IMPRESSION: Postoperative changes are seen from L3 through L5, with improvement in the degrees of narrowing throughout the postoperative region. The degenerative changes elsewhere appear similar. Mild moderate levoconvex lumbar scoliosis. Dictated by: Henrry Hameed M.D. on 01/10/2025 at 12:26 Approved by: Henrry Hameed M.D. on 01/10/2025 at 12:31
== END ==
LOC: MRI 12:05
PROVIDERS: PCP Nurse Practitioner Family; Referring Provider Internal Medicine Cardiovascular Disease; Visit Provider Internal Medicine Cardiovascular Disease
DX: M54.50 Low back pain, unspecified (principal); G89.29 Other chronic pain; M51.369 Other intervertebral disc degeneration, lumbar region without mention of lumbar back pain or lower extremity pain; M51.379 Other intervertebral disc degeneration, lumbosacral region without mention of lumbar back pain or lower extremity pain; M48.061 Spinal stenosis, lumbar region without neurogenic claudication; M48.07 Spinal stenosis, lumbosacral region; M47.816 Spondylosis without myelopathy or radiculopathy, lumbar region; M47.817 Spondylosis without myelopathy or radiculopathy, lumbosacral region; M41.86 Other forms of scoliosis, lumbar region; Z98.1 Arthrodesis status; Z98.890 Other specified postprocedural states
CPT/HCPCS: 72148